=== PATIENT | female | born 1960 | race Two or more races ===

== ENCOUNTER 2017-02-23 18:33 | Inpatient (IN) | payer MEDICARE, OTHER ==
[~2017-02-23] VITALS: Ht 170.2 cm; Wt 113.9 kg
[2017-02-23] MEDS ORDERED: HALOPERIDOL LACTATE 5 MG/1 ML VIAL IM ONE (18:45)
--- NOTE | 2017-02-23 18:50 | NUR ---
PT AGITATED, YELLING "MONAE".TRIED TO ORIENTTHE PT. PT CITIZEN OF [place] SPEAKING, MAT RN PROVIDED THE TRANSLATION. COMFORT MEASURES PROVIDED
[2017-02-23] MEDS ORDERED: FURO-152 PO (18:52)
[2017-02-23] MEDS ORDERED: PRAV40TA PO (18:52)
[2017-02-23] MEDS ORDERED: GLIM2TAB PO (18:52)
[2017-02-23] MEDS ORDERED: LURA80TA PO (18:52)
[2017-02-23] MEDS ORDERED: SITA100T PO (18:52)
[2017-02-23] MEDS ORDERED: METF500T4 PO (18:52)
[2017-02-23] MEDS ORDERED: HALOPERIDOL LACTATE 5 MG/1 ML VIAL ONE (18:54)
[2017-02-23] MEDS ORDERED: LORAZEPAM 2 MG/1 ML VIAL IV ONE (19:00)
--- NOTE | 2017-02-23 19:00 | NUR ---
PT ESCALATING, TRYING TO CALM THE PT, UNSUCCESSFUL.
[2017-02-23] MEDS ORDERED: LORAZEPAM 2 MG/1 ML VIAL ONE (19:14)
--- NOTE | 2017-02-23 20:05 | NUR ---
REPORT GIVEN TO PERRY DAVIS. PT WILL BE ADMITTED TO 148A
--- NOTE | 2017-02-23 20:27 | NUR ---
[facility]AB SENT.
--- NOTE | 2017-02-23 20:28 | NUR ---
PATIENT TRANSFERRED TO [facility] BY SHERICE CRAWFORD.
[2017-02-23 20:45] VITALS: BP 191/62
[2017-02-23] MEDS ORDERED: ZOLPIDEM 5 MG TABLET PO PRN (21:00)
[2017-02-23] MEDS ORDERED: ACETAMINOPHEN 325 MG TABLET PO PRN (21:00)
[2017-02-23] MEDS ORDERED: LORAZEPAM 0.5 MG TABLET PO PRN ×2 (21:00→21:30)
[2017-02-23] MEDS ORDERED: MAG HYDROX/AL HYDROX/SIMETH 30 ML LIQUID UDC PO PRN ×2 (21:00→21:30)
[2017-02-23] MEDS ORDERED: MAGNESIUM HYDROXIDE 30 ML LIQUID UDC PO PRN (21:00)
[2017-02-24 00:18] VITALS: BP 138/63
--- NOTE | 2017-02-24 03:52 | NUR ---
BARRY/BLANCA Patient is a 56 yr old female admitted to [facility] after she was placed on a 5150 for danger to self by the [place] police department upon evaluation requested by [facility] after patient presented with injuries that occurred as a result of her jumping from the window from her assigned room of 1st floor of residential were she resides. Patient admitted under the care of Dr. Gil and Dr. Zuniga, patient has a diagnosis of Bipolar disorder and medical history include diabetes mellitus, hypertension, hyperlipidemia and obesity. Patient arrived on the unit at 2030 uncooperative, sedated by prn administered in ER. Patient's skin with multiple bruises documented in chart abrasions to the head. Unable to conduct admitting interview due to sedation. Patient was mumbling unable to from a coherent sentence, will monitor for safety. Initiate plan of care. No personal belongings at time of admission will endorse to oncoming shift to follow up when patient appears more alert. Patient slept through the night, no distress noted. Addendum: 02/24/17 at 0758 by SUSAN CORCORAN RN PATIENT IS CURRENTLY ADMITTING TO SUICIDAL IDEATION NO PLAN IDENTIFIED, 1:1 SITTER WITHIN ARMS LENGTH AT ALL TIMES FOR SAFETY. MANAGER GLOBAL COMMUNICATIONS PATTERN SHOP SUPERVISOR NOTIFIED, AWAITING CALL TO ENDORSE NEXT SHIFT. LAST OBSERVED LYING IN BED WITH EYES CLOSED.
[2017-02-24 05:48] VITALS: BP 129/61
[2017-02-24 07:30] VITALS: BP 129/76
[2017-02-24] MEDS: ACETAMINOPHEN 325 MG TABLET PO PRN (11:59)
[2017-02-24] MEDS: LORAZEPAM 1 MG TABLET PO PRN (13:59)
[2017-02-24] MEDS: GLIMEPIRIDE 2 MG TABLET PO SCH ×2 (13:59→17:23)
[2017-02-24] MEDS: FUROSEMIDE 20 MG TABLET PO SCH (13:59)
[2017-02-24 15:37] VITALS: BP 103/48
[2017-02-24] MEDS: BLOOD SUGAR DIAGNOSTIC 1 EACH STRIP VI SCH (16:30)
[2017-02-24] MEDS ORDERED: BLOOD SUGAR DIAGNOSTIC 1 EACH STRIP VI SCH ×2 (17:00)
[2017-02-24] MEDS: METFORMIN HCL 500 MG TABLET PO SCH (17:23)
[2017-02-24] MEDS: QUETIAPINE FUMARATE 25 MG TABLET PO SCH (17:23)
[2017-02-24] MEDS: DIVALPROEX SPRINKLE 125 MG CAP.SPRINK PO SCH (20:20)
[2017-02-24 20:25] VITALS: BP 112/58
[2017-02-24 20:28] VITALS: BP 120/61
--- NOTE | 2017-02-24 20:58 | NUR ---
PATIENT RECEIVED IN BED AWAKE. PATIENT REMAINS WITH A 1:1 SITTER WITHIN ARMS LENGTH AT ALL TIMES FOR SAFETY. PATIENT DENIES SUICIDAL IDEATION, NO PLAN NOTED, WILL CONTINUE TO MONITOR ANY CHANGES OF BEHAVIOR. PATIENT ENCOURAGED TO EXPRESS FEELINGS AND CONCERNS. PATIENT COMPLAINT WITH MEDICATION. NO AGGRESSIVE OR COMBATIVE BEHAVIOR NOTED WILL CONTINUE TO MONITOR AND REDIRECT. PATIENT DENIES PAIN AT THIS TIME, WILL CONTINUE TO MONITOR. BED IN LOWEST POSITION, BED LOCKED, AND BED ALARM ON WHILE IN BED.
[2017-02-24] MEDS: ZOLPIDEM 5 MG TABLET PO PRN (23:45)
[2017-02-25] MEDS: LORAZEPAM 1 MG TABLET PO PRN ×2 (03:20→21:55)
[2017-02-25] MEDS: BLOOD SUGAR DIAGNOSTIC 1 EACH STRIP VI SCH ×2 (06:30→16:30)
[2017-02-25 07:30] VITALS: BP 136/70
[2017-02-25] MEDS: QUETIAPINE FUMARATE 25 MG TABLET PO SCH ×3 (08:29→17:15)
[2017-02-25] MEDS: FUROSEMIDE 20 MG TABLET PO SCH (08:29)
[2017-02-25] MEDS: DIVALPROEX SPRINKLE 125 MG CAP.SPRINK PO SCH ×2 (08:30→20:00)
[2017-02-25] MEDS: METFORMIN HCL 500 MG TABLET PO SCH ×2 (08:30→17:15)
[2017-02-25] MEDS: GLIMEPIRIDE 2 MG TABLET PO SCH ×2 (08:30→17:15)
[2017-02-25] MEDS: LINAGLIPTIN 5 MG TABLET PO SCH (08:31)
[2017-02-25] MEDS ORDERED: Medication Not On Formulary EA (Sitagliptin Phosphate (Januvia) 100 MG) PO SCH (09:00)
[2017-02-25 16:44] VITALS: BP 130/63
[2017-02-25 20:45] VITALS: BP 146/64
--- NOTE | 2017-02-25 21:14 | NUR ---
ENCOURAGED TO EXPRESS FEELINGS AND CONCERNS. PATIENT WITH VISUAL HALLUCINATIONS POINTING TO THE CEILING. PATIENT COMPLAINT WITH MEDICATION. NO AGGRESSIVE OR COMBATIVE BEHAVIOR NOTED WILL CONTINUE TO MONITOR AND REDIRECT. PATIENT DENIES PAIN AT THIS TIME, WILL CONTINUE TO MONITOR. BED IN LOWEST POSITION, BED LOCKED, AND BED ALARM ON WHILE IN BED.
[2017-02-25] MEDS ORDERED: DEXTROSE 50% 50 ML DISP.SYRIN IV PRN (22:30)
[2017-02-25] MEDS: ZOLPIDEM 5 MG TABLET PO PRN (23:43)
[2017-02-26] MEDS: BLOOD SUGAR DIAGNOSTIC 1 EACH STRIP VI SCH ×5 (06:30→21:09)
[2017-02-26 07:02] LABS: BASOPHILS % (AUTO) 0.3 % (0.0-2.0); EOSINOPHILS # (AUTO) 0.2 K/uL (0.0-0.7); EOSINOPHILS % (AUTO) 2.4 % (0.0-7.0); HEMATOCRIT 39.2 % (37-47); HEMOGLOBIN 13.1 G/DL (12.0-16.0); LYMPHOCYTES # (AUTO) 1.8 K/UL (0.8-4.8); LYMPHOCYTES % (AUTO) 21.3 % (20.5-51.5); MEAN CORPUSCULAR HEMOGLOBIN 30.4 UUG (27.0-31.0); MEAN CORPUSCULAR HGB CONC 33 g/dL (32.0-37.0); MEAN CORPUSCULAR VOLUME 91.4 FL (81.0-99.0); MONOCYTES # (AUTO) 0.8 K/UL (0.1-1.30); MONOCYTES % (AUTO) 10.2 % (0.0-11.0); NEUTROPHILS # (AUTO) 5.5 K/UL (1.8-8.9); NEUTROPHILS % (AUTO) 65.8 % (38.5-71.5); PLATELET COUNT (AUTO) 275 K/UL (150-450); RED BLOOD CELL COUNT(AUTO) 4.29 MIL/UL (4.2-5.4); WHITE BLOOD COUNT (AUTO) 8.3 K/UL (4.0-11.2)
[2017-02-26 07:42] LABS: BILIRUBIN,TOTAL 0.3 mg/dL (0.2-1.0); CREATININE 0.7 mg/dL (0.6-1.3); PHOSPHOROUS 3.8 mg/dL (2.5-4.9); POTASSIUM 4.2 mmol/L (3.5-5.1); TOTAL PROTEIN, SERUM 7.2 g/dL (6.4-8.2)
[2017-02-26 07:47] VITALS: BP 135/72
[2017-02-26] MEDS: LINAGLIPTIN 5 MG TABLET PO SCH (08:38)
[2017-02-26] MEDS: GLIMEPIRIDE 2 MG TABLET PO SCH ×2 (08:38→17:29)
[2017-02-26] MEDS: METFORMIN HCL 500 MG TABLET PO SCH ×2 (08:39→17:29)
[2017-02-26] MEDS: FUROSEMIDE 20 MG TABLET PO SCH (08:39)
[2017-02-26] MEDS: DIVALPROEX SPRINKLE 125 MG CAP.SPRINK PO SCH ×2 (08:39→21:05)
[2017-02-26] MEDS: QUETIAPINE FUMARATE 25 MG TABLET PO SCH ×4 (08:45→21:05)
--- NOTE | 2017-02-26 12:18 | NUR ---
Initial discharge instructions: Pt resides at [facility] [[address],[address];[phone]].Per pt,she would like to return back to the facility.Per pt's sister,Victoria [phone] she agreed and would like the pt to return back to the facility as well.Spoke with PJ at the facility who stated they would accept the pt back once stable.SW will speak with pt,family,and MD regarding appropriate discharge plans.SW will form a safe and proper discharge.
[2017-02-26 16:35] VITALS: BP 132/74
[2017-02-26] MEDS: INSULIN REGULAR, HUMAN 300 UNIT/3 ML VIAL SQ PRN ×2 (17:35→21:28)
[2017-02-26 20:00] VITALS: BP 133/73
[2017-02-27] MEDS: ACETAMINOPHEN 325 MG TABLET PO PRN ×2 (00:40→14:52)
[2017-02-27] MEDS: LORAZEPAM 1 MG TABLET PO PRN (04:02)
--- NOTE | 2017-02-27 05:25 | NUR ---
Nurse's notes:GPS At approx. 0035, patient complained of mild headaches. Tylenol 650mg PO PRN was given at 0040. Reassess at 0130, patient stated, "headache is gone.".we will continue to monitor.
--- NOTE | 2017-02-27 05:31 | NUR ---
at approx 0350, patient noted in bed, restless, agitated and calling family members' names. Patient was redirected, however was ineffective. Ativan 1mg PO PRN was given at 0402. Reassessed at 0440, patient sleeping in her bed comfortably. we will continue to monitor.
[2017-02-27] MEDS: BLOOD SUGAR DIAGNOSTIC 1 EACH STRIP VI SCH ×4 (06:55→20:19)
[2017-02-27 07:30] VITALS: BP 124/65
[2017-02-27] MEDS: GLIMEPIRIDE 2 MG TABLET PO SCH ×2 (08:29→17:01)
[2017-02-27] MEDS: DIVALPROEX SPRINKLE 125 MG CAP.SPRINK PO SCH ×2 (08:29→20:28)
[2017-02-27] MEDS: METFORMIN HCL 500 MG TABLET PO SCH ×2 (08:29→17:01)
[2017-02-27] MEDS: FUROSEMIDE 20 MG TABLET PO SCH (08:29)
[2017-02-27] MEDS: QUETIAPINE FUMARATE 25 MG TABLET PO SCH ×2 (08:29→16:55)
[2017-02-27] MEDS: LINAGLIPTIN 5 MG TABLET PO SCH (08:31)
[2017-02-27] MEDS: CHOLECALCIFEROL 400 UNITS TABLET PO SCH (13:30)
[2017-02-27] MEDS ORDERED: Z GUARD REMEDY PASTE 57 GM TUBE TOP PRN (13:45)
--- NOTE | 2017-02-27 13:49 | NUR ---
WOUND CARE CONSULT: SKIN ASSESSMENT LIMITED AT THIS TIME DUE TO PATIENT EATING LUNCH. PT HAS HALLUCINATIONS AT TIMES PER NURSING STAFF. PT NOTED TO HAVE WOUNDS TO RT AND LEFT ABDOMEN WITH YELLOW/PINK BASE. RECOMMEND SURGICAL CONSULT. RECOMMENDATIONS MADE FOR SKIN PROTECTION AND WOUND CARE. DISCUSSED WITH NURSING STAFF. MD IN AGREEMENT WITH PLAN OF CARE.
[2017-02-27 15:06] VITALS: BP 140/69
[2017-02-27 20:16] VITALS: BP 139/71
[2017-02-27] MEDS: INSULIN REGULAR, HUMAN 300 UNIT/3 ML VIAL SQ PRN (20:26)
[2017-02-27] MEDS: QUETIAPINE FUMARATE 100 MG TABLET PO SCH (20:27)
[2017-02-28] MEDS: LORAZEPAM 1 MG TABLET PO PRN (01:59)
[2017-02-28] MEDS: BLOOD SUGAR DIAGNOSTIC 1 EACH STRIP VI SCH ×4 (06:45→20:21)
[2017-02-28 07:30] VITALS: BP 128/66
[2017-02-28] MEDS: CHOLECALCIFEROL 400 UNITS TABLET PO SCH (09:20)
[2017-02-28] MEDS: DIVALPROEX SPRINKLE 125 MG CAP.SPRINK PO SCH ×2 (09:20→20:20)
[2017-02-28] MEDS: METFORMIN HCL 500 MG TABLET PO SCH ×2 (09:20→17:22)
[2017-02-28] MEDS: LINAGLIPTIN 5 MG TABLET PO SCH (09:21)
[2017-02-28] MEDS: GLIMEPIRIDE 2 MG TABLET PO SCH ×2 (09:21→17:22)
[2017-02-28] MEDS: FUROSEMIDE 20 MG TABLET PO SCH (09:21)
[2017-02-28] MEDS: QUETIAPINE FUMARATE 25 MG TABLET PO SCH (09:21)
[2017-02-28] MEDS: INSULIN REGULAR, HUMAN 300 UNIT/3 ML VIAL SQ PRN ×3 (09:22→16:49)
[2017-02-28] MEDS: DOCUSATE SODIUM 250 MG CAPSULE PO SCH (12:28)
[2017-02-28 15:00] VITALS: BP 138/78
--- NOTE | 2017-02-28 16:33 | NUR ---
GPS RN NOTE WOUND CARE DONE ORDERED. TOLERATED WELL. NO C/O PAIN OR DISCOMFORT.
[2017-02-28] MEDS: QUETIAPINE FUMARATE 100 MG TABLET PO SCH ×2 (16:50→20:20)
[2017-02-28 17:55] LABS: *BILIRUBIN,URIN NEGATIVE (NEGATIVE); *BLOOD, URINE NEGATIVE (NEGATIVE); *CLARITY,URINE CLEAR (CLEAR); *COLOR,URINE YELLOW (YELLOW); *KETONES,URINE NEGATIVE (NEGATIVE); *PROTEIN,URINE NEGATIVE (NEGATIVE); LEUKOCYTE ESTERASE ,URINE NEGATIVE (NEGATIVE); NITRITE, URINE NEGATIVE (NEGATIVE); UGLUCOSE NEGATIVE (NEGATIVE)
--- NOTE | 2017-02-28 18:46 | NUR ---
GPS/RN- Patient close to nursing station standing with sitter at side. patient frequently singing in Slovenian "Sachi, Sachi, Aleluya". patient tangential in thoughts, nonsensical, stating that One nurse will kill another nurse because hair is longer than hers. patient with depressed anxious affect. continues hyperreligious, praying and meditating.
--- NOTE | 2017-02-28 18:51 | NUR ---
GPS.RN- patient verbalizing in Welsh that she was carrying Herrera in the baby carriage, when redirected as to who is Herrera, patient verbalizes the President. patient redirected for emotional support. patient has poor insight continue to educate
[2017-02-28 20:29] VITALS: BP 131/70
[2017-02-28] MEDS: ZOLPIDEM 5 MG TABLET PO PRN (22:30)
[2017-03-01] MEDS: LORAZEPAM 1 MG TABLET PO PRN ×2 (05:12→12:43)
[2017-03-01] MEDS: BLOOD SUGAR DIAGNOSTIC 1 EACH STRIP VI SCH ×4 (06:33→20:24)
[2017-03-01 07:30] VITALS: BP 138/60
[2017-03-01 07:42] LABS: BASOPHILS % (AUTO) 0.2 % (0.0-2.0); EOSINOPHILS # (AUTO) 0.2 K/uL (0.0-0.7); EOSINOPHILS % (AUTO) 2.4 % (0.0-7.0); HEMATOCRIT 40.1 % (37-47); HEMOGLOBIN 13.3 G/DL (12.0-16.0); LYMPHOCYTES # (AUTO) 2.2 K/UL (0.8-4.8); LYMPHOCYTES % (AUTO) 23.7 % (20.5-51.5); MEAN CORPUSCULAR HEMOGLOBIN 30.2 UUG (27.0-31.0); MEAN CORPUSCULAR HGB CONC 33 g/dL (32.0-37.0); MEAN CORPUSCULAR VOLUME 91.1 FL (81.0-99.0); MONOCYTES # (AUTO) 0.8 K/UL (0.1-1.30); MONOCYTES % (AUTO) 8.5 % (0.0-11.0); NEUTROPHILS % (AUTO) 65.2 % (38.5-71.5); PLATELET COUNT (AUTO) 282 K/UL (150-450); WHITE BLOOD COUNT (AUTO) 9.2 K/UL (4.0-11.2)
[2017-03-01 07:54] LABS: BILIRUBIN,TOTAL 0.4 mg/dL (0.2-1.0); CREATININE 0.6 mg/dL (0.6-1.3); PHOSPHOROUS 4.4 mg/dL (2.5-4.9); POTASSIUM 3.7 mmol/L (3.5-5.1)
[2017-03-01] MEDS: CHOLECALCIFEROL 400 UNITS TABLET PO SCH (08:42)
[2017-03-01] MEDS: METFORMIN HCL 500 MG TABLET PO SCH ×2 (08:43→17:51)
[2017-03-01] MEDS: DIVALPROEX SPRINKLE 125 MG CAP.SPRINK PO SCH ×2 (08:43→20:04)
[2017-03-01] MEDS: FUROSEMIDE 20 MG TABLET PO SCH (08:43)
[2017-03-01] MEDS: QUETIAPINE FUMARATE 100 MG TABLET PO SCH ×2 (08:43→20:04)
[2017-03-01] MEDS: GLIMEPIRIDE 2 MG TABLET PO SCH ×2 (08:43→17:51)
[2017-03-01] MEDS: DOCUSATE SODIUM 250 MG CAPSULE PO SCH (08:43)
[2017-03-01] MEDS: LINAGLIPTIN 5 MG TABLET PO SCH (08:45)
[2017-03-01] MEDS ORDERED: BISACODYL 10 MG SUPP.RECT RC PRN (11:00)
[2017-03-01] MEDS ORDERED: MAGNESIUM HYDROXIDE 30 ML LIQUID UDC PO ONE (11:00)
[2017-03-01] MEDS: INSULIN REGULAR, HUMAN 300 UNIT/3 ML VIAL SQ PRN ×2 (12:33→20:25)
[2017-03-01 15:00] VITALS: BP 129/71
[2017-03-01] MEDS: BACITRACIN/POLYMYXIN B OINT 15 GM TUBE TOP SCH ×2 (17:50→20:04)
[2017-03-01] MEDS: HALOPERIDOL 5 MG TABLET PO SCH (17:51)
[2017-03-01] MEDS: BENZTROPINE MESYLATE 0.5 MG TABLET PO SCH (17:51)
--- NOTE | 2017-03-01 19:01 | NUR ---
pt still bizarre and delusional in thoyghts redirectable , dsg changednoted dry drainage abdomen soft pt stated no dolar antibiotic ointment applied to sites, pt cries off and on ativan 1mg at 12 50 with some effect 1;1 sitter in room ambulatory in hallways with pt tolerated well . accuchecks within norrmal limits, continue to monitor
[2017-03-01 20:52] VITALS: BP 129/82
[2017-03-02] MEDS: LORAZEPAM 1 MG TABLET PO PRN ×3 (03:28→15:21)
[2017-03-02] MEDS: BLOOD SUGAR DIAGNOSTIC 1 EACH STRIP VI SCH (06:36)
[2017-03-02 07:30] VITALS: BP 130/70
[2017-03-02] MEDS: BENZTROPINE MESYLATE 0.5 MG TABLET PO SCH ×2 (09:14→17:29)
[2017-03-02] MEDS: DOCUSATE SODIUM 250 MG CAPSULE PO SCH (09:14)
[2017-03-02] MEDS: HALOPERIDOL 5 MG TABLET PO SCH ×2 (09:14→17:29)
[2017-03-02] MEDS: LINAGLIPTIN 5 MG TABLET PO SCH (09:14)
[2017-03-02] MEDS: METFORMIN HCL 500 MG TABLET PO SCH ×2 (09:14→17:29)
[2017-03-02] MEDS: FUROSEMIDE 20 MG TABLET PO SCH (09:14)
[2017-03-02] MEDS: GLIMEPIRIDE 2 MG TABLET PO SCH ×2 (09:15→17:30)
[2017-03-02] MEDS: DIVALPROEX SPRINKLE 125 MG CAP.SPRINK PO SCH ×2 (09:15→20:08)
[2017-03-02] MEDS: CHOLECALCIFEROL 400 UNITS TABLET PO SCH (09:23)
[2017-03-02 16:29] VITALS: BP 127/69
[2017-03-02] MEDS: QUETIAPINE FUMARATE 100 MG TABLET PO SCH (20:08)
[2017-03-02 20:49] VITALS: BP 138/67
[2017-03-02] MEDS: MAGNESIUM HYDROXIDE 30 ML LIQUID UDC PO PRN (22:02)
[2017-03-03] MEDS: LORAZEPAM 1 MG TABLET PO PRN (03:34)
[2017-03-03 07:30] VITALS: BP 117/64
[2017-03-03] MEDS: DOCUSATE SODIUM 250 MG CAPSULE PO SCH (08:13)
[2017-03-03] MEDS: DIVALPROEX SPRINKLE 125 MG CAP.SPRINK PO SCH ×2 (08:14→20:12)
[2017-03-03] MEDS: METFORMIN HCL 500 MG TABLET PO SCH ×2 (08:14→17:16)
[2017-03-03] MEDS: HALOPERIDOL 5 MG TABLET PO SCH ×2 (08:14→17:16)
[2017-03-03] MEDS: BENZTROPINE MESYLATE 0.5 MG TABLET PO SCH ×2 (08:14→17:16)
[2017-03-03] MEDS: FUROSEMIDE 20 MG TABLET PO SCH (08:14)
[2017-03-03] MEDS: LINAGLIPTIN 5 MG TABLET PO SCH (08:14)
[2017-03-03] MEDS: CHOLECALCIFEROL 400 UNITS TABLET PO SCH (08:14)
[2017-03-03] MEDS: GLIMEPIRIDE 2 MG TABLET PO SCH ×2 (08:14→17:16)
[2017-03-03 16:00] VITALS: BP 118/90
[2017-03-03 20:00] VITALS: BP 134/68
[2017-03-03] MEDS: QUETIAPINE FUMARATE 100 MG TABLET PO SCH (20:12)
[2017-03-04 07:48] VITALS: BP 130/65
[2017-03-04] MEDS: DIVALPROEX SPRINKLE 125 MG CAP.SPRINK PO SCH ×2 (08:26→20:21)
[2017-03-04] MEDS: HALOPERIDOL 5 MG TABLET PO SCH ×3 (08:27→18:22)
[2017-03-04] MEDS: GLIMEPIRIDE 2 MG TABLET PO SCH ×2 (08:27→18:22)
[2017-03-04] MEDS: FUROSEMIDE 20 MG TABLET PO SCH (08:27)
[2017-03-04] MEDS: CHOLECALCIFEROL 400 UNITS TABLET PO SCH (08:27)
[2017-03-04] MEDS: LINAGLIPTIN 5 MG TABLET PO SCH (08:27)
[2017-03-04] MEDS: METFORMIN HCL 500 MG TABLET PO SCH ×2 (08:27→18:25)
[2017-03-04] MEDS: DOCUSATE SODIUM 250 MG CAPSULE PO SCH (08:27)
[2017-03-04] MEDS: BENZTROPINE MESYLATE 0.5 MG TABLET PO SCH ×2 (08:27→18:23)
[2017-03-04] MEDS ORDERED: LIDOCAINE 1%-EPI 1:100,000 20 ML VIAL TP PRN (08:30)
[2017-03-04] MEDS ORDERED: SILVER NITRATE APPLICATOR STICK EACH TP PRN (08:45)
[2017-03-04] MEDS ORDERED: QUETIAPINE FUMARATE 25 MG TABLET PO SCH (09:00)
[2017-03-04] MEDS ORDERED: MAGNESIUM HYDROXIDE 30 ML LIQUID UDC PO ONE (11:00)
[2017-03-04] MEDS ORDERED: BISACODYL 10 MG SUPP.RECT RC ONE (11:00)
[2017-03-04] MEDS: AMPICILLIN 500 MG CAPSULE PO SCH ×2 (14:21→18:23)
[2017-03-04 16:43] VITALS: BP 145/73
[2017-03-04] MEDS: QUETIAPINE FUMARATE 100 MG TABLET PO SCH (20:21)
[2017-03-04 21:24] VITALS: BP 147/68
[2017-03-05] MEDS: AMPICILLIN 500 MG CAPSULE PO SCH ×4 (00:32→17:25)
[2017-03-05] MEDS: LORAZEPAM 1 MG TABLET PO PRN (00:50)
--- NOTE | 2017-03-05 06:30 | NUR ---
Patient slept for approx. 2.45 hrs through the night. She is alert and oriented x 2 with no changes in LOC. Patient had an abdominal X ray yesterday; however, no results yet. we will f/u with radiology. Abdominal assessment done: soft, non-tender, non distended. Hypoactive bowel sound heard in all 4 quadrants. patient denies pain or discomfort at this time. she is up in her moody chair and continue on 1:1 supervision r/t SI precaution.
[2017-03-05 07:30] VITALS: BP 142/82
[2017-03-05] MEDS: CHOLECALCIFEROL 400 UNITS TABLET PO SCH (08:03)
[2017-03-05] MEDS: BENZTROPINE MESYLATE 0.5 MG TABLET PO SCH ×2 (08:03→17:40)
[2017-03-05] MEDS: DOCUSATE SODIUM 250 MG CAPSULE PO SCH (08:03)
[2017-03-05] MEDS: FUROSEMIDE 20 MG TABLET PO SCH (08:03)
[2017-03-05] MEDS: DIVALPROEX SPRINKLE 125 MG CAP.SPRINK PO SCH ×3 (08:04→17:23)
[2017-03-05] MEDS: HALOPERIDOL 5 MG TABLET PO SCH ×3 (08:04→17:24)
[2017-03-05] MEDS: LINAGLIPTIN 5 MG TABLET PO SCH (08:05)
[2017-03-05] MEDS: GLIMEPIRIDE 2 MG TABLET PO SCH ×2 (08:11→17:24)
[2017-03-05] MEDS: METFORMIN HCL 500 MG TABLET PO SCH ×2 (08:11→17:23)
[2017-03-05 08:25] LABS: BASOPHILS % (AUTO) 0.3 % (0.0-2.0); EOSINOPHILS # (AUTO) 0.2 K/uL (0.0-0.7); EOSINOPHILS % (AUTO) 2.3 % (0.0-7.0); LYMPHOCYTES # (AUTO) 1.8 K/UL (0.8-4.8); LYMPHOCYTES % (AUTO) 18.8 % (20.5-51.5); MEAN CORPUSCULAR HEMOGLOBIN 31.2 UUG (27.0-31.0); MEAN CORPUSCULAR HGB CONC 34 g/dL (32.0-37.0); MEAN CORPUSCULAR VOLUME 91.6 FL (81.0-99.0); MONOCYTES # (AUTO) 0.7 K/UL (0.1-1.30); MONOCYTES % (AUTO) 7.1 % (0.0-11.0); NEUTROPHILS % (AUTO) 71.5 % (38.5-71.5); PLATELET COUNT (AUTO) 271 K/UL (150-450); RED BLOOD CELL COUNT(AUTO) 4.15 MIL/UL (4.2-5.4); WHITE BLOOD COUNT (AUTO) 9.7 K/UL (4.0-11.2)
[2017-03-05 08:49] LABS: BILIRUBIN,TOTAL 0.3 mg/dL (0.2-1.0); CREATININE 0.6 mg/dL (0.6-1.3); MAGNESIUM 2.2 mg/dL (1.8-2.4); PHOSPHOROUS 4.1 mg/dL (2.5-4.9); POTASSIUM 3.9 mmol/L (3.5-5.1); TOTAL PROTEIN, SERUM 7.5 g/dL (6.4-8.2)
[2017-03-05 15:24] VITALS: BP 133/70
[2017-03-05] MEDS: MAGNESIUM HYDROXIDE 30 ML LIQUID UDC PO PRN (19:21)
[2017-03-05 19:56] VITALS: BP 137/65
--- NOTE | 2017-03-05 19:59 | NUR ---
MOM 30ML PO given for constipation. abdomen is soft non-tender non distended. Patient denies pain or discomfort at this time.
[2017-03-05] MEDS: QUETIAPINE FUMARATE 100 MG TABLET PO SCH (20:17)
[2017-03-06] MEDS: AMPICILLIN 500 MG CAPSULE PO SCH ×4 (00:08→17:50)
[2017-03-06] MEDS: ZOLPIDEM 5 MG TABLET PO PRN ×2 (00:52→22:05)
[2017-03-06 07:30] VITALS: BP 140/68
[2017-03-06] MEDS: DIVALPROEX SPRINKLE 125 MG CAP.SPRINK PO SCH ×3 (08:14→17:49)
[2017-03-06] MEDS: DOCUSATE SODIUM 250 MG CAPSULE PO SCH (08:14)
[2017-03-06] MEDS: CHOLECALCIFEROL 400 UNITS TABLET PO SCH (08:14)
[2017-03-06] MEDS: HALOPERIDOL 5 MG TABLET PO SCH ×4 (08:15→20:07)
[2017-03-06] MEDS: METFORMIN HCL 500 MG TABLET PO SCH ×2 (08:15→17:49)
[2017-03-06] MEDS: FUROSEMIDE 20 MG TABLET PO SCH (08:15)
[2017-03-06] MEDS: BENZTROPINE MESYLATE 0.5 MG TABLET PO SCH ×2 (08:15→17:49)
[2017-03-06] MEDS: GLIMEPIRIDE 2 MG TABLET PO SCH ×2 (08:15→17:49)
[2017-03-06] MEDS: LINAGLIPTIN 5 MG TABLET PO SCH (08:19)
[2017-03-06] MEDS: CADEXOMER IODINE 40 GM TUBE TOP SCH (10:54)
[2017-03-06 16:00] VITALS: BP 135/68
[2017-03-06 19:56] VITALS: BP 134/76
[2017-03-06] MEDS: QUETIAPINE FUMARATE 100 MG TABLET PO SCH (20:07)
--- NOTE | 2017-03-06 20:48 | NUR ---
PATIENT RECEIVED IN BED AWAKE. PATIENT REMAINS WITH A 1:1 SITTER WITHIN ARMS LENGTH AT ALL TIMES FOR SAFETY. PATIENT NOTED WITH EPISODES OF CRYING, WILL CONTINUE TO REDIRECT NEEDED.PATIENT DENIES SUICIDAL IDEATION, NO PLAN NOTED, WILL CONTINUE TO MONITOR ANY CHANGES OF BEHAVIOR. PATIENT ENCOURAGED TO EXPRESS FEELINGS AND CONCERNS. PATIENT WITH VISUAL HALLUCINATIONS POINTING TO THE CEILING. PATIENT COMPLAINT WITH MEDICATION. NO AGGRESSIVE OR COMBATIVE BEHAVIOR NOTED WILL CONTINUE TO MONITOR AND REDIRECT. PATIENT DENIES PAIN AT THIS TIME, WILL CONTINUE TO MONITOR. BED IN LOWEST POSITION, BED LOCKED, AND BED ALARM ON WHILE IN BED.
[2017-03-06] MEDS ORDERED: ATORVASTATIN 10 MG TABLET PO SCH (21:00)
[2017-03-07] MEDS: AMPICILLIN 500 MG CAPSULE PO SCH ×4 (06:05→17:37)
[2017-03-07 07:30] VITALS: BP 131/70
[2017-03-07 08:04] LABS: BASOPHILS % (AUTO) 0.3 % (0.0-2.0); EOSINOPHILS # (AUTO) 0.2 K/uL (0.0-0.7); EOSINOPHILS % (AUTO) 2.5 % (0.0-7.0); HEMATOCRIT 36.5 % (37-47); HEMOGLOBIN 12.5 G/DL (12.0-16.0); LYMPHOCYTES # (AUTO) 2.9 K/UL (0.8-4.8); LYMPHOCYTES % (AUTO) 29.5 % (20.5-51.5); MEAN CORPUSCULAR HEMOGLOBIN 31.3 UUG (27.0-31.0); MEAN CORPUSCULAR HGB CONC 34 g/dL (32.0-37.0); MEAN CORPUSCULAR VOLUME 91.2 FL (81.0-99.0); MONOCYTES # (AUTO) 0.8 K/UL (0.1-1.30); MONOCYTES % (AUTO) 8.4 % (0.0-11.0); NEUTROPHILS # (AUTO) 5.8 K/UL (1.8-8.9); NEUTROPHILS % (AUTO) 59.3 % (38.5-71.5); PLATELET COUNT (AUTO) 263 K/UL (150-450); WHITE BLOOD COUNT (AUTO) 9.7 K/UL (4.0-11.2)
[2017-03-07] MEDS: ASPIRIN 81 MG TAB.CHEW PO SCH (08:33)
[2017-03-07] MEDS: GLIMEPIRIDE 2 MG TABLET PO SCH ×2 (08:33→17:37)
[2017-03-07] MEDS: DOCUSATE SODIUM 250 MG CAPSULE PO SCH (08:33)
[2017-03-07] MEDS: METFORMIN HCL 500 MG TABLET PO SCH ×2 (08:33→17:37)
[2017-03-07] MEDS: DIVALPROEX SPRINKLE 125 MG CAP.SPRINK PO SCH ×3 (08:33→17:37)
[2017-03-07] MEDS: FUROSEMIDE 20 MG TABLET PO SCH (08:33)
[2017-03-07] MEDS: CHOLECALCIFEROL 400 UNITS TABLET PO SCH (08:33)
[2017-03-07] MEDS: BENZTROPINE MESYLATE 0.5 MG TABLET PO SCH ×2 (08:33→18:20)
[2017-03-07] MEDS: HALOPERIDOL 5 MG TABLET PO SCH ×4 (08:33→20:21)
[2017-03-07] MEDS: LINAGLIPTIN 5 MG TABLET PO SCH (08:35)
[2017-03-07] MEDS: CADEXOMER IODINE 40 GM TUBE TOP SCH (08:35)
[2017-03-07 08:42] LABS: CREATININE 0.6 mg/dL (0.6-1.3); MAGNESIUM 2.1 mg/dL (1.8-2.4); PHOSPHOROUS 5.2 mg/dL (2.5-4.9); POTASSIUM 4.1 mmol/L (3.5-5.1)
[2017-03-07] MEDS: LORAZEPAM 1 MG TABLET PO PRN (09:59)
[2017-03-07 16:00] VITALS: BP 116/53
[2017-03-07] MEDS: QUETIAPINE FUMARATE 100 MG TABLET PO SCH (20:21)
--- NOTE | 2017-03-07 21:25 | NUR ---
PATIENT RECEIVED IN BED AWAKE. PATIENT REMAINS WITH A 1:1 SITTER WITHIN ARMS LENGTH AT ALL TIMES FOR SAFETY. PATIENT NOTED WITH EPISODES OF CRYING, AND SINGING, WILL CONTINUE TO REDIRECT NEEDED.PATIENT DENIES SUICIDAL IDEATION, NO PLAN NOTED, WILL CONTINUE TO MONITOR ANY CHANGES OF BEHAVIOR. PATIENT ENCOURAGED TO EXPRESS FEELINGS AND CONCERNS. POOR SAFETY AND POOR JUDGEMENT WILL CONTINUE TO MONITOR, AND REDIRECT. PATIENT COMPLAINT WITH MEDICATION. NO AGGRESSIVE OR COMBATIVE BEHAVIOR NOTED WILL CONTINUE TO MONITOR AND REDIRECT. PATIENT DENIES PAIN AT THIS TIME, WILL CONTINUE TO MONITOR. BED IN LOWEST POSITION, BED LOCKED, AND BED ALARM ON WHILE IN BED.
[2017-03-07 21:26] VITALS: BP 127/71
[2017-03-07] MEDS: ZOLPIDEM 5 MG TABLET PO PRN (22:32)
[2017-03-08] MEDS: AMPICILLIN 500 MG CAPSULE PO SCH ×4 (00:08→18:11)
[2017-03-08] MEDS: ACETAMINOPHEN 325 MG TABLET PO PRN (00:13)
[2017-03-08 07:30] VITALS: BP 124/66
[2017-03-08] MEDS: ASPIRIN 81 MG TAB.CHEW PO SCH (08:34)
[2017-03-08] MEDS: DIVALPROEX SPRINKLE 125 MG CAP.SPRINK PO SCH ×3 (08:34→17:03)
[2017-03-08] MEDS: FUROSEMIDE 20 MG TABLET PO SCH (08:34)
[2017-03-08] MEDS: DOCUSATE SODIUM 250 MG CAPSULE PO SCH (08:35)
[2017-03-08] MEDS: HALOPERIDOL 5 MG TABLET PO SCH ×4 (08:35→20:35)
[2017-03-08] MEDS: LINAGLIPTIN 5 MG TABLET PO SCH (08:35)
[2017-03-08] MEDS: CHOLECALCIFEROL 400 UNITS TABLET PO SCH (08:35)
[2017-03-08] MEDS: BENZTROPINE MESYLATE 0.5 MG TABLET PO SCH ×2 (08:35→17:03)
[2017-03-08] MEDS: METFORMIN HCL 500 MG TABLET PO SCH ×2 (08:42→17:03)
[2017-03-08] MEDS: GLIMEPIRIDE 2 MG TABLET PO SCH ×2 (08:42→17:03)
[2017-03-08] MEDS: CADEXOMER IODINE 40 GM TUBE TOP SCH (09:31)
[2017-03-08 16:57] VITALS: BP 124/57
[2017-03-08] MEDS: LORAZEPAM 1 MG TABLET PO PRN (18:27)
[2017-03-08 20:10] VITALS: BP 138/74
[2017-03-08] MEDS: QUETIAPINE FUMARATE 100 MG TABLET PO SCH (20:36)
[2017-03-08] MEDS: ZOLPIDEM 5 MG TABLET PO PRN (22:44)
[2017-03-08] MEDS ORDERED: ZOLPIDEM 5 MG TABLET ONE (22:51)
[2017-03-09] MEDS: AMPICILLIN 500 MG CAPSULE PO SCH ×4 (00:05→17:21)
--- NOTE | 2017-03-09 05:35 | NUR ---
Last night patient was noted yelling while in bed, and unable to sleep. Ambien 5mg PO PRN was given at approx. 2245. Reassesses at approx. 2355, patient noted sleeping in her bed. Shower was given at this time. we will continue to monitor.
--- NOTE | 2017-03-09 07:25 | NUR ---
RECEIVED REPORT FROM NIGHTSHIFT NURSE, PT IS ASLEEP SITTER AT BEDSIDE NO DISTRESS.
[2017-03-09 07:30] VITALS: BP 145/77
[2017-03-09] MEDS: ASPIRIN 81 MG TAB.CHEW PO SCH (08:37)
[2017-03-09] MEDS: CHOLECALCIFEROL 400 UNITS TABLET PO SCH (08:37)
[2017-03-09] MEDS: GLIMEPIRIDE 2 MG TABLET PO SCH ×2 (08:37→17:20)
[2017-03-09] MEDS: HALOPERIDOL 5 MG TABLET PO SCH ×4 (08:37→20:59)
[2017-03-09] MEDS: DIVALPROEX SPRINKLE 125 MG CAP.SPRINK PO SCH ×3 (08:37→17:20)
[2017-03-09] MEDS: FUROSEMIDE 20 MG TABLET PO SCH (08:37)
[2017-03-09] MEDS: DOCUSATE SODIUM 250 MG CAPSULE PO SCH (08:38)
[2017-03-09] MEDS: BENZTROPINE MESYLATE 0.5 MG TABLET PO SCH ×2 (08:38→17:19)
[2017-03-09] MEDS: METFORMIN HCL 500 MG TABLET PO SCH ×2 (08:41→17:18)
--- NOTE | 2017-03-09 08:53 | NUR ---
DUE MEDS GIVEN, SITTER AT BEDSIDE, PT IS QUIET WITH LABILE EFFECT, APPEARS DEPRESSED, ALL DUE MEDS GIVEN.
[2017-03-09] MEDS: LINAGLIPTIN 5 MG TABLET PO SCH (09:30)
[2017-03-09] MEDS: CADEXOMER IODINE 40 GM TUBE TOP SCH (11:27)
[2017-03-09 15:00] VITALS: BP 134/62
--- NOTE | 2017-03-09 17:50 | NUR ---
SITTER AT BEDSIDE, PT TOOK ALL PM MEDS, PT CALM AND QUIET, WILL GIVE REPORT TO SPORTS OFFICIAL NURSE.
[2017-03-09 20:00] VITALS: BP 117/61
[2017-03-09] MEDS: QUETIAPINE FUMARATE 100 MG TABLET PO SCH (20:59)
[2017-03-10] MEDS: AMPICILLIN 500 MG CAPSULE PO SCH ×4 (06:39→17:14)
[2017-03-10 07:30] VITALS: BP 123/69
--- NOTE | 2017-03-10 07:30 | NUR ---
on bed, resting sitter with patient. prn restlessness , easilt relieved when redirected.
[2017-03-10] MEDS: DIVALPROEX SPRINKLE 125 MG CAP.SPRINK PO SCH ×3 (08:56→16:49)
[2017-03-10] MEDS: GLIMEPIRIDE 2 MG TABLET PO SCH ×2 (08:56→17:14)
[2017-03-10] MEDS: DOCUSATE SODIUM 250 MG CAPSULE PO SCH (08:56)
[2017-03-10] MEDS: ASPIRIN 81 MG TAB.CHEW PO SCH (08:56)
[2017-03-10] MEDS: FUROSEMIDE 20 MG TABLET PO SCH (08:56)
[2017-03-10] MEDS: CHOLECALCIFEROL 400 UNITS TABLET PO SCH (08:57)
[2017-03-10] MEDS: BENZTROPINE MESYLATE 0.5 MG TABLET PO SCH ×2 (08:57→16:48)
[2017-03-10] MEDS: HALOPERIDOL 5 MG TABLET PO SCH ×4 (08:57→20:00)
[2017-03-10] MEDS: LINAGLIPTIN 5 MG TABLET PO SCH (09:01)
[2017-03-10] MEDS: CADEXOMER IODINE 40 GM TUBE TOP SCH (09:01)
[2017-03-10] MEDS: METFORMIN HCL 500 MG TABLET PO SCH ×2 (09:03→17:14)
--- NOTE | 2017-03-10 10:50 | NUR ---
up [facility] am care, tolerating well, sleeping comfortably prn.
[2017-03-10] MEDS: LORAZEPAM 1 MG TABLET PO PRN (15:05)
--- NOTE | 2017-03-10 15:06 | NUR ---
medicated for anxiety, hitting the table and hollering like a horn.
[2017-03-10 15:11] VITALS: BP 133/67
[2017-03-10] MEDS: QUETIAPINE FUMARATE 100 MG TABLET PO SCH (20:00)
[2017-03-10 20:50] VITALS: BP 127/74
--- NOTE | 2017-03-10 21:03 | NUR ---
PATIENT RECEIVED IN BED AWAKE. PATIENT REMAINS WITH A 1:1 SITTER WITHIN ARMS LENGTH AT ALL TIMES FOR SAFETY. PATIENT NOTED WITH EPISODES OF CRYING, AND SINGING WILL CONTINUE TO REDIRECT NEEDED.PATIENT DENIES SUICIDAL IDEATION, NO PLAN NOTED, WILL CONTINUE TO MONITOR ANY CHANGES OF BEHAVIOR. PATIENT ENCOURAGED TO EXPRESS FEELINGS AND CONCERNS. POOR SAFETY AND POOR JUDGEMENT WILL CONTINUE TO MONITOR, AND REDIRECT. PATIENT COMPLAINT WITH MEDICATION. NO AGGRESSIVE OR COMBATIVE BEHAVIOR NOTED WILL CONTINUE TO MONITOR AND REDIRECT. PATIENT DENIES PAIN AT THIS TIME, WILL CONTINUE TO MONITOR. BED IN LOWEST POSITION, BED LOCKED, AND BED ALARM ON WHILE IN BED.
[2017-03-10] MEDS: ZOLPIDEM 5 MG TABLET PO PRN (23:35)
[2017-03-11] MEDS: AMPICILLIN 500 MG CAPSULE PO SCH ×2 (00:35→06:37)
[2017-03-11 07:30] VITALS: BP 136/72
[2017-03-11] MEDS: DOCUSATE SODIUM 250 MG CAPSULE PO SCH (10:05)
[2017-03-11] MEDS: DIVALPROEX SPRINKLE 125 MG CAP.SPRINK PO SCH ×3 (10:05→18:05)
[2017-03-11] MEDS: ASPIRIN 81 MG TAB.CHEW PO SCH (10:05)
[2017-03-11] MEDS: METFORMIN HCL 500 MG TABLET PO SCH ×2 (10:05→18:05)
[2017-03-11] MEDS: CHOLECALCIFEROL 400 UNITS TABLET PO SCH (10:05)
[2017-03-11] MEDS: FUROSEMIDE 20 MG TABLET PO SCH (10:05)
[2017-03-11] MEDS: BENZTROPINE MESYLATE 0.5 MG TABLET PO SCH ×2 (10:05→18:05)
[2017-03-11] MEDS: HALOPERIDOL 5 MG TABLET PO SCH ×4 (10:06→20:36)
[2017-03-11] MEDS: GLIMEPIRIDE 2 MG TABLET PO SCH ×2 (10:06→18:05)
[2017-03-11] MEDS: LINAGLIPTIN 5 MG TABLET PO SCH (10:06)
[2017-03-11] MEDS: CADEXOMER IODINE 40 GM TUBE TOP SCH (11:04)
[2017-03-11] MEDS: ACETAMINOPHEN 325 MG TABLET PO PRN (13:23)
[2017-03-11] MEDS: LORAZEPAM 1 MG TABLET PO PRN (13:23)
[2017-03-11 17:00] VITALS: BP 120/54
[2017-03-11 20:00] VITALS: BP 133/71
[2017-03-11] MEDS: QUETIAPINE FUMARATE 100 MG TABLET PO SCH (20:36)
[2017-03-12] MEDS: ZOLPIDEM 5 MG TABLET PO PRN (01:08)
--- NOTE | 2017-03-12 05:20 | NUR ---
PATIENT RECEIVED IN BED AWAKE. PATIENT REMAINS WITH A 1:1 SITTER WITHIN ARMS LENGTH AT ALL TIMES FOR SAFETY. PATIENT CONTINUES TO REQUIRE REDIRECTION AT TIMES. PATIENT DENIES SUICIDAL IDEATION, OR INTENT WILL CONTINUE TO MONITOR ANY CHANGES OF BEHAVIOR. PATIENT ENCOURAGED TO EXPRESS FEELINGS AND CONCERNS. POOR SAFETY AND POOR JUDGEMENT WILL CONTINUE TO MONITOR. PATIENT COMPLAINT WITH MEDICATION PRN FOR INSOMNIA ADMINISTERED ORDERED. SKIN TX APPLIED DIRECTED. NO AGGRESSIVE OR COMBATIVE BEHAVIOR NOTED WILL CONTINUE TO MONITOR BEHAVIOR. PATIENT DENIES PAIN AT THIS TIME. BED IN LOWEST POSITION, BED LOCKED, AND BED ALARM ON WHILE IN BED. Addendum: 03/14/17 at 0638 by SUSAN CORCORAN RN LATE ENTRY FOR 03/13/17 0600 STAFF REPORTED TWO BOWEL MOVEMENTS AT THE END OF SHIFT.
[2017-03-12 07:30] VITALS: BP 107/65
[2017-03-12] MEDS: FUROSEMIDE 20 MG TABLET PO SCH (08:19)
[2017-03-12] MEDS: GLIMEPIRIDE 2 MG TABLET PO SCH ×2 (08:19→17:08)
[2017-03-12] MEDS: METFORMIN HCL 500 MG TABLET PO SCH ×2 (08:19→17:08)
[2017-03-12] MEDS: CHOLECALCIFEROL 400 UNITS TABLET PO SCH (08:20)
[2017-03-12] MEDS: DIVALPROEX SPRINKLE 125 MG CAP.SPRINK PO SCH ×3 (08:20→17:08)
[2017-03-12] MEDS: DOCUSATE SODIUM 250 MG CAPSULE PO SCH (08:21)
[2017-03-12] MEDS: ASPIRIN 81 MG TAB.CHEW PO SCH (08:21)
[2017-03-12] MEDS: LINAGLIPTIN 5 MG TABLET PO SCH (08:21)
[2017-03-12] MEDS: CADEXOMER IODINE 40 GM TUBE TOP SCH (08:26)
[2017-03-12] MEDS: BENZTROPINE MESYLATE 0.5 MG TABLET PO SCH ×3 (08:40→20:39)
[2017-03-12] MEDS: HALOPERIDOL 5 MG TABLET PO SCH ×3 (08:40→20:39)
[2017-03-12] MEDS: LORAZEPAM 1 MG TABLET PO PRN (11:56)
[2017-03-12] MEDS: MAGNESIUM HYDROXIDE 30 ML LIQUID UDC PO PRN (14:47)
[2017-03-12 15:48] VITALS: BP 134/66
[2017-03-12] MEDS ORDERED: BISACODYL 10 MG SUPP.RECT RC ONE (16:15)
[2017-03-12 20:00] VITALS: BP 135/76
[2017-03-13 07:26] LABS: BASOPHILS % (AUTO) 0.5 % (0.0-2.0); EOSINOPHILS # (AUTO) 0.2 K/uL (0.0-0.7); EOSINOPHILS % (AUTO) 2.3 % (0.0-7.0); HEMATOCRIT 39.5 % (37-47); HEMOGLOBIN 13.2 G/DL (12.0-16.0); LYMPHOCYTES # (AUTO) 1.6 K/UL (0.8-4.8); LYMPHOCYTES % (AUTO) 22.5 % (20.5-51.5); MEAN CORPUSCULAR HEMOGLOBIN 30.3 UUG (27.0-31.0); MEAN CORPUSCULAR HGB CONC 33 g/dL (32.0-37.0); MEAN CORPUSCULAR VOLUME 90.9 FL (81.0-99.0); MONOCYTES # (AUTO) 0.5 K/UL (0.1-1.30); MONOCYTES % (AUTO) 7.4 % (0.0-11.0); NEUTROPHILS # (AUTO) 4.6 K/UL (1.8-8.9); NEUTROPHILS % (AUTO) 67.3 % (38.5-71.5); PLATELET COUNT (AUTO) 268 K/UL (150-450); RED BLOOD CELL COUNT(AUTO) 4.34 MIL/UL (4.2-5.4); WHITE BLOOD COUNT (AUTO) 6.9 K/UL (4.0-11.2)
[2017-03-13 07:56] LABS: BILIRUBIN,TOTAL 0.2 mg/dL (0.2-1.0); CREATININE 0.6 mg/dL (0.6-1.3); MAGNESIUM 2.1 mg/dL (1.8-2.4); PHOSPHOROUS 4.3 mg/dL (2.5-4.9); POTASSIUM 4.1 mmol/L (3.5-5.1); TOTAL PROTEIN, SERUM 7.4 g/dL (6.4-8.2)
[2017-03-13 08:00] VITALS: BP 147/80
[2017-03-13] MEDS: GLIMEPIRIDE 2 MG TABLET PO SCH ×2 (08:22→17:49)
[2017-03-13] MEDS: METFORMIN HCL 500 MG TABLET PO SCH ×2 (08:22→17:49)
[2017-03-13] MEDS: BENZTROPINE MESYLATE 0.5 MG TABLET PO SCH ×3 (08:22→20:15)
[2017-03-13] MEDS: DIVALPROEX SPRINKLE 125 MG CAP.SPRINK PO SCH ×3 (08:22→17:49)
[2017-03-13] MEDS: LINAGLIPTIN 5 MG TABLET PO SCH (08:23)
[2017-03-13] MEDS: ASPIRIN 81 MG TAB.CHEW PO SCH (08:23)
[2017-03-13] MEDS: CHOLECALCIFEROL 400 UNITS TABLET PO SCH (08:23)
[2017-03-13] MEDS: HALOPERIDOL 5 MG TABLET PO SCH ×3 (08:25→20:15)
[2017-03-13] MEDS: FUROSEMIDE 20 MG TABLET PO SCH (08:25)
[2017-03-13] MEDS: DOCUSATE SODIUM 250 MG CAPSULE PO SCH (08:25)
[2017-03-13] MEDS: CADEXOMER IODINE 40 GM TUBE TOP SCH (08:31)
[2017-03-13] MEDS ORDERED: FLEET ENEMA 133 ML BOTTLE RC ONE (13:30)
[2017-03-13 15:00] VITALS: BP 134/81
[2017-03-13] MEDS: BLOOD SUGAR DIAGNOSTIC 1 EACH STRIP VI SCH (17:12)
[2017-03-13 21:17] VITALS: BP 134/66
[2017-03-14] MEDS: BLOOD SUGAR DIAGNOSTIC 1 EACH STRIP VI SCH ×2 (06:28→17:29)
[2017-03-14 07:30] VITALS: BP 136/71
[2017-03-14] MEDS: METFORMIN HCL 500 MG TABLET PO SCH ×2 (09:22→17:36)
[2017-03-14] MEDS: ASPIRIN 81 MG TAB.CHEW PO SCH (09:23)
[2017-03-14] MEDS: BENZTROPINE MESYLATE 0.5 MG TABLET PO SCH ×3 (09:23→20:29)
[2017-03-14] MEDS: LINAGLIPTIN 5 MG TABLET PO SCH (09:23)
[2017-03-14] MEDS: HALOPERIDOL 5 MG TABLET PO SCH ×3 (09:23→20:29)
[2017-03-14] MEDS: CHOLECALCIFEROL 400 UNITS TABLET PO SCH (09:23)
[2017-03-14] MEDS: DOCUSATE SODIUM 250 MG CAPSULE PO SCH (09:23)
[2017-03-14] MEDS: GLIMEPIRIDE 2 MG TABLET PO SCH ×2 (09:23→17:36)
[2017-03-14] MEDS: DIVALPROEX SPRINKLE 125 MG CAP.SPRINK PO SCH ×3 (09:23→17:37)
[2017-03-14] MEDS: FUROSEMIDE 20 MG TABLET PO SCH (09:23)
[2017-03-14] MEDS: CADEXOMER IODINE 40 GM TUBE TOP SCH (09:24)
[2017-03-14] MEDS: LORAZEPAM 1 MG TABLET PO PRN (13:40)
[2017-03-14 16:00] VITALS: BP 139/66
[2017-03-14 20:17] VITALS: BP 132/78
[2017-03-14] MEDS ORDERED: SENNOSIDES 1 TABLET PO SCH (21:00)
[2017-03-15] MEDS: MAGNESIUM HYDROXIDE 30 ML LIQUID UDC PO PRN (05:40)
[2017-03-15] MEDS: BLOOD SUGAR DIAGNOSTIC 1 EACH STRIP VI SCH ×3 (06:38→17:11)
--- NOTE | 2017-03-15 07:16 | NUR ---
patient BG this morning was 62. 4oz orange juice was given and after 15 minutes, it was recheck with repeat results of 76. we will continue to monitor.
[2017-03-15] MEDS: BENZTROPINE MESYLATE 0.5 MG TABLET PO SCH ×2 (08:13→17:41)
[2017-03-15] MEDS: HALOPERIDOL 5 MG TABLET PO SCH ×2 (08:13→17:32)
[2017-03-15] MEDS: GLIMEPIRIDE 2 MG TABLET PO SCH (08:13)
[2017-03-15] MEDS: DOCUSATE SODIUM 250 MG CAPSULE PO SCH (08:13)
[2017-03-15] MEDS: DIVALPROEX SPRINKLE 125 MG CAP.SPRINK PO SCH ×3 (08:13→17:32)
[2017-03-15] MEDS: METFORMIN HCL 500 MG TABLET PO SCH ×2 (08:13→17:32)
[2017-03-15] MEDS: ASPIRIN 81 MG TAB.CHEW PO SCH (08:13)
[2017-03-15] MEDS: LINAGLIPTIN 5 MG TABLET PO SCH (08:13)
[2017-03-15] MEDS: FUROSEMIDE 20 MG TABLET PO SCH (08:13)
[2017-03-15] MEDS: CADEXOMER IODINE 40 GM TUBE TOP SCH (08:14)
[2017-03-15] MEDS: CHOLECALCIFEROL 400 UNITS TABLET PO SCH (08:14)
--- NOTE | 2017-03-15 08:21 | NUR ---
DC Note: The patient will be discharged today back to [facility] [[address] [place] [id number]; ] via ambulance at 12:00 pm. Please schedule an ambulance for the patient. Spoke with Jon at the facility who stated they would accept the patient today. SW called and left a voicemail including discharge plans for patient's sister, Victoria [phone] who is aware and agreeable with discharge plans. Pt will follow up with (Window Tinter) and (Psychiatrist) at the facility.
[2017-03-15] MEDS ORDERED: LACTULOSE 20 G/30 ML LIQUID UDC PO ONE (11:30)
[2017-03-15] MEDS ORDERED: FLEET ENEMA 133 ML BOTTLE RC ONE (13:30)
--- NOTE | 2017-03-15 14:39 | NUR ---
GPS/RN- Patient provided with Lactulose and Fleet Enema, patient with positive results, large bowel movement. Patient provided with wound care , photos updated in chart. cooperative with care and meds.
--- NOTE | 2017-03-15 14:44 | NUR ---
GPS/RN- Patient had another bowel movement at this time . currently two large bowel movement, Meds effective
--- NOTE | 2017-03-15 18:00 | NUR ---
PT IS ORIENTED TO SELF, COOPERATIVE AND COMPLIANT. PT IS BEING DISCHARGED TO [facility]. PT IS WILLING TO GO. PT DENIES DISTRESS. PT HAD NO BELONGINGS. PT IS UNABLE TO SIGN PAPER WORK. REPORT WAS CALLED AND GIVEN TO PERRY DING.
== END 2017-03-15 18:00 | DRG 885 ==
LOC: ER 18:35 → GPS 20:19
PROVIDERS: ADMIT Psychiatry & Neurology Psychiatry; ATTEND Psychiatry & Neurology Psychiatry
DX: F25.0 Schizoaffective disorder, bipolar type (principal); E43 Unspecified severe protein-calorie malnutrition; N39.0 Urinary tract infection, site not specified; E78.00 Pure hypercholesterolemia, unspecified; E66.01 Morbid (severe) obesity due to excess calories; Z88.8 Allergy status to other drugs, medicaments and biological substances; F32.9 Major depressive disorder, single episode, unspecified; W19.XXXD Unspecified fall, subsequent encounter; S01.01XD Laceration without foreign body of scalp, subsequent encounter; E11.65 Type 2 diabetes mellitus with hyperglycemia; I10 Essential (primary) hypertension; F41.9 Anxiety disorder, unspecified; G47.9 Sleep disorder, unspecified; E55.9 Vitamin D deficiency, unspecified; K59.00 Constipation, unspecified; Z79.899 Other long term (current) drug therapy; Z81.8 Family history of other mental and behavioral disorders; S31.103S Unspecified open wound of abdominal wall, right lower quadrant without penetration into peritoneal cavity, sequela; S31.1 Open wound of abdominal wall without penetration into peritoneal cavity; Y83.9 Surgical procedure, unspecified as the cause of abnormal reaction of the patient, or of later complication, without mention of misadventure at the time of the procedure; B96.89 Other specified bacterial agents as the cause of diseases classified elsewhere; Z68.31 Body mass index [BMI] 31.0-31.9, adult
CPT/HCPCS: 36415; 74000; 80164; 82306; 83735; 84100; 84443; 85025; 87086; 93005; 97116; 97161; 97530; J0290; J1630; J1815; J2060; J3490